=== PATIENT | female | born 1995 | race Caucasian/White ===

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

== ENCOUNTER 2017-02-15 08:28 | Outpatient (CLI) | payer MEDICAID ==
[2017-02-15 09:56] LABS: AMORPHOUS SEDIMENT,URINE TRACE /HPF; APPEARANCE,URINE TURBID; BILIRUBIN,URINE NEGATIVE (NEGATIVE); GLUCOSE, URINE NEGATIVE (NEGATIVE); KETONES,URINE NEGATIVE (NEGATIVE); LEUKOCYTE ESTERASE,URINE LARGE (NEGATIVE); NITRITE,URINE NEGATIVE (NEGATIVE); PROTEIN,URINE NEGATIVE (NEGATIVE); URINE SPECIFIC GRAVITY 1.017; UROBILINOGEN,URINE NEGATIVE mg/dL (<2.0)
[2017-02-15 10:22] LABS: URINE BARBITURATES SCREEN NEGATIVE; URINE METHADONE SCREEN NEGATIVE; URINE OPIATES LOW NEGATIVE; URINE PHENCYCLIDINE SCREEN NEGATIVE
== END 2017-02-15 10:07 | disposition home or self-care (01) ==
LOC: EDSTATUS 08:33 → LC 08:43
PROVIDERS: ATTEND Student in an Organized Health Care Education/Training Program
PROC: 4A1HXCZ Monitoring of Products of Conception, Cardiac Rate, External Approach (ICD-10-PCS; principal; 2017-02-15)
DX: O26.892 Other specified pregnancy related conditions, second trimester (principal); R10.2 Pelvic and perineal pain; Z3A.19 19 weeks gestation of pregnancy
CPT/HCPCS: 80307; 81001

== ENCOUNTER 2017-02-21 21:04 | Outpatient (CLI) | payer MEDICAID ==
[2017-02-21 21:47] LABS: APPEARANCE,URINE SLIGHTLY-CLOUDY; BILIRUBIN,URINE NEGATIVE (NEGATIVE); GLUCOSE, URINE NEGATIVE (NEGATIVE); KETONES,URINE 80 mg/dL (NEGATIVE); LEUKOCYTE ESTERASE,URINE MODERATE (NEGATIVE); NITRITE,URINE NEGATIVE (NEGATIVE); PROTEIN,URINE NEGATIVE (NEGATIVE); URINE SPECIFIC GRAVITY 1.028; UROBILINOGEN,URINE NEGATIVE mg/dL (<2.0)
[2017-02-21] MEDS ORDERED: RINGERS SOLUTION,LACTATED 1,000 ML IV PRN (21:49)
[2017-02-21 22:04] LABS: URINE BARBITURATES SCREEN NEGATIVE; URINE METHADONE SCREEN NEGATIVE; URINE OPIATES LOW NEGATIVE; URINE PHENCYCLIDINE SCREEN NEGATIVE
== END 2017-02-21 23:08 | disposition home or self-care (01) ==
LOC: LC 21:04
PROVIDERS: ATTEND Obstetrics & Gynecology
PROC: 4A1HXCZ Monitoring of Products of Conception, Cardiac Rate, External Approach (ICD-10-PCS; principal; 2017-02-21)
DX: O47.02 False labor before 37 completed weeks of gestation, second trimester (principal); Z3A.22 22 weeks gestation of pregnancy
CPT/HCPCS: 76815; 80307; 81001

== ENCOUNTER 2017-04-05 07:55 | Outpatient (CLI) | payer MEDICAID ==
[2017-04-05 08:27] LABS: APPEARANCE,URINE SLIGHTLY-CLOUDY; BILIRUBIN,URINE NEGATIVE (NEGATIVE); GLUCOSE, URINE NEGATIVE (NEGATIVE); KETONES,URINE NEGATIVE (NEGATIVE); LEUKOCYTE ESTERASE,URINE TRACE (NEGATIVE); NITRITE,URINE NEGATIVE (NEGATIVE); PROTEIN,URINE NEGATIVE (NEGATIVE); URINE SPECIFIC GRAVITY 1.024; UROBILINOGEN,URINE NEGATIVE mg/dL (<2.0)
[2017-04-05 08:44] LABS: URINE BARBITURATES SCREEN NEGATIVE; URINE METHADONE SCREEN NEGATIVE; URINE OPIATES LOW NEGATIVE; URINE PHENCYCLIDINE SCREEN NEGATIVE
--- NOTE | 2017-04-05 10:25 | RADIOLOGY REPORT (SQ) ---
EXAM DESCRIPTION: U/S OB LIMITED COMPLETED DATE/TIME: 04/05/2017 10:01 am REASON FOR STUDY: cervical length for vaginal bleeding COMPARISON: 02/21/2017. TECHNIQUE: Limited transvaginal grayscale ultrasound for evaluation of specific requested obstetrica l parameters. LIMITATIONS: None. FINDINGS: CERVICAL LENGTH: 3.7 cm. Closed. ROBBY: 21 cm. FHR: 139 beats per minute. PRESENTATION: Cephalic. OTHER: No other significant findings. IMPRESSION: LIMITED OBSTETRICAL ULTRASOUND WITH MEASURED PARAMETERS DELINEATED ABOVE. Trimester of : Second trimester - 13 weeks 1 day to 27 weeks 6 days. TECHNICAL DOCUMENTATION: JOB ID: [id number] [employer]- All Rights Reserved
[2017-04-05] MEDS ORDERED: FLUCONAZOLE 100 MG TABLET PO ONE (10:44)
[2017-04-05] MEDS ORDERED: FLUCONAZOLE 100 MG TABLET ONE (10:52)
[2017-04-05 11:33] LABS: CHLAM PCR NOT DETECTED (NOT DETECT)
== END 2017-04-05 11:43 | disposition home or self-care (01) ==
LOC: LC 07:55
PROVIDERS: ATTEND Specialist
PROC: 4A1HXCZ Monitoring of Products of Conception, Cardiac Rate, External Approach (ICD-10-PCS; principal; 2017-04-05)
DX: O99.282 Endocrine, nutritional and metabolic diseases complicating pregnancy, second trimester (principal); Z3A.27 27 weeks gestation of pregnancy
CPT/HCPCS: 59899; 87210; 81001; 80307; 87491; 87591; 76815; J3490

== ENCOUNTER 2017-07-04 09:44 | Inpatient (IN) | payer MEDICAID ==
[2017-07-04] MEDS ORDERED: RINGERS SOLUTION,LACTATED 300 ML IV ONE (09:46)
[2017-07-04] MEDS ORDERED: OXYTOCIN/NORMAL SALINE 20 UNIT/1,000 ML RTUINJ IV PRN (09:46)
[2017-07-04] MEDS ORDERED: RINGERS SOLUTION,LACTATED 1,000 ML IV PRN (09:46)
[2017-07-04 11:00] LABS: URINE BARBITURATES SCREEN NEGATIVE; URINE METHADONE SCREEN NEGATIVE; URINE OPIATES LOW NEGATIVE; URINE PHENCYCLIDINE SCREEN NEGATIVE
[2017-07-04 11:02] LABS: APPEARANCE,URINE SLIGHTLY-CLOUDY; BILIRUBIN,URINE NEGATIVE (NEGATIVE); GLUCOSE, URINE NEGATIVE (NEGATIVE); KETONES,URINE NEGATIVE (NEGATIVE); LEUKOCYTE ESTERASE,URINE NEGATIVE (NEGATIVE); NITRITE,URINE NEGATIVE (NEGATIVE); PROTEIN,URINE 100 mg/dL (NEGATIVE); URINE SPECIFIC GRAVITY 1.012; UROBILINOGEN,URINE NEGATIVE mg/dL (<2.0)
[2017-07-04 11:22] LABS: ABSOLUTE EOSINOPHILS # (AUTO) 0.2 10^3/uL (0.0-0.6); ABSOLUTE LYMPHOCYTES (AUTO) 2.9 10^3/uL (0.5-4.7); ABSOLUTE NEUT (AUTO) 11.4 10^3/uL (1.7-8.2); BASOPHILS % (AUTO) 0.3 % (0-2); EOSINOPHILS % (AUTO) 1.5 % (0-6); HEMATOCRIT 38.3 % (36.0-47.0); HEMOGLOBIN 13.4 g/dL (12.0-15.5); HGB HCT DIFFERENCE 1.9; LYMPHOCYTES % (AUTO) 18.6 % (13-45); MEAN CORPUSCULAR HEMOGLOBIN 31.1 pg (27.0-33.4); MEAN CORPUSCULAR HGB CONC 34.9 g/dL (32.0-36.0); MEAN CORPUSCULAR VOLUME 89 fl (80-97); MONOCYTES % (AUTO) 6.5 % (3-13); RED CELL DISTRIBUTION WIDTH 13.2 % (11.5-14.0); SEGMENTED NEUTROPHILS % (AUTO) 73.1 % (42-78); WHITE BLOOD COUNT 15.6 10^3/uL (4.0-10.5)
[2017-07-04] MEDS ORDERED: OXYTOCIN/NORMAL SALINE 20 UNIT/1,000 ML RTUINJ ONE ×2 (11:25→23:13)
--- NOTE | 2017-07-04 14:07 | L&D Progress Notes ---
PROGRESS NOTES Datetime Report Generated by CPN: 07/04/2017 14:07 PROGRESS NOTE Procedures: Sterile Vag Exam Plan: Continue Present Management; Induction Comment: complaining of pain with UC's. VE 3/90/vtx/-1, Cat 1 strip, requesting epidural, DrMarimar Arreaga aware of status, Start IV antibiotics, 18 hours post rom VAGINAL EXAM Dilatation: 3 Effacement: 80 Station: -1 MEMBRANES Membranes: Ruptured Amniotic Fluid Color: Clear SIGNATURE SIGNATURE: [id number] Assignment: Dinorah Arreaga MD Signature: with User ID: Ayanna : with User ID: [email or web address]
[2017-07-04] MEDS ORDERED: EPHEDRINE SULFATE INJ 50 MG/1 ML AMPULE ONE (14:10)
[2017-07-04] MEDS ORDERED: FENTANYL CITRATE INJ/PF 100 MCG/2 ML AMPUL ONE (14:10)
[2017-07-04] MEDS ORDERED: PHENYLEPHRINE HCL INJ/PF 10 MG/1 ML SDV ONE (14:11)
[2017-07-04] MEDS ORDERED: BUPIVACAINE HCL 0.25 % INJ/PF (2.5 MG/1 ML) 30 ML VIAL ONE (14:11)
[2017-07-04] MEDS ORDERED: FENTANYL/BUPIVACAINE/NS/PF 200 MCG/100 ML RTUINJ EPI ONE ×2 (14:11→21:49)
[2017-07-04] MEDS ORDERED: PENICILLIN G-K 5 MILLION UNIT VIAL ONE ×3 (14:23→22:21)
--- NOTE | 2017-07-04 15:17 | L&D Progress Notes ---
PROGRESS NOTES Datetime Report Generated by CPN: 07/04/2017 15:17 PROGRESS NOTE Comment: resting with epidural, Moderate variability, lates after epidural which has resolved, uc's q 2-3 min, will watch closely FETUS C SIGNATURE: [id number] Assignment: Dinorah Arreaga MD Signature: with User ID: [email or web address] : with User ID: [email or web address]
[2017-07-04] MEDS ORDERED: LIDOCAINE 1% INJ-PF (10 MG/ML) 30 ML SDV ONE (23:13)
[2017-07-04] MEDS ORDERED: MISOPROSTOL 0.2 MG TABLET ONE (23:13)
[2017-07-05] MEDS ORDERED: PENICILLIN G-K 5 MILLION UNIT VIAL ONE (02:53)
[2017-07-05] MEDS ORDERED: NA PHOS,M-B/NA PHOS,DI-BA (ADULT) 133 ML ENEMA PR PRN (04:28)
[2017-07-05] MEDS ORDERED: OXYTOCIN/NORMAL SALINE 20 UNIT/1,000 ML RTUINJ IV PRN (04:28)
[2017-07-05] MEDS ORDERED: DIBUCAINE 1% OINTMENT 28 GM TP PRN (04:28)
[2017-07-05] MEDS ORDERED: MEASLES,MUMPS&RUBELLA VACC/PF 0.5 ML VIAL SUBCUT PRN (04:28)
[2017-07-05] MEDS ORDERED: DIPH/PERTUSS(ACELL)/TETANUS VAC/PF 0.5 ML SYR (>=10YO) IM PRN (04:28)
[2017-07-05] MEDS ORDERED: PROMETHAZINE HCL 25 MG TABLET PO PRN (04:28)
[2017-07-05] MEDS ORDERED: PROMETHAZINE HCL 25 MG SUPP.RECT PR PRN (04:28)
[2017-07-05] MEDS ORDERED: PSEUDOEPHEDRINE HCL 30 MG TABLET PO PRN (04:28)
[2017-07-05] MEDS ORDERED: ACETAMINOPHEN 650 MG SUPP.RECT PR PRN (04:28)
[2017-07-05] MEDS ORDERED: ACETAMINOPHEN WITH CODEINE #3 TABLET PO PRN (04:28)
[2017-07-05] MEDS ORDERED: DIPHENHYDRAMINE HCL 25 MG CAPSULE PO PRN (04:28)
[2017-07-05] MEDS ORDERED: GLYCERIN/WITCH HAZEL LEAF 1 EACH MED..PAD TP PRN (04:28)
[2017-07-05] MEDS ORDERED: BENZOCAINE/MENTHOL AEROSOL SPRAY 56 ML TOP PRN (04:28)
[2017-07-05] MEDS ORDERED: PROMETHAZINE HCL INJ 25 MG/1 ML VIAL IV PRN (04:28)
[2017-07-05] MEDS ORDERED: MAGNESIUM HYDROXIDE SUSP 30 ML UDCUP PO PRN (04:28)
[2017-07-05] MEDS ORDERED: ZOLPIDEM TARTRATE 5 MG TABLET PO PRN (04:28)
[2017-07-05] MEDS: IBUPROFEN 800 MG TABLET PO SCH ×3 (05:13→21:05)
[2017-07-05] MEDS ORDERED: IBUPROFEN 800 MG TABLET ONE (05:16)
--- NOTE | 2017-07-05 06:14 | Delivery Summary ---
Del Sum A-C Datetime Report Generated by CPN: 07/05/2017 06:14 DELIVERY PERSONNEL DELIVERY PERSONNEL: [id number] Delivery Doctor:: Dinorah Arreaga MD Labor and Delivery Nurse:: Manisha Leroy RNmanager review Nurse:: Camelia Garcia RN Nursery Nurse:: Aleja Messer RN Nursery Nurse:: BRI Sunshine/TECTONOPHYSICIST: Merline Garsia, ST MATERNAL INFORMATION Delivery Anesthesia: Epidural Medications After Delivery: Pitocin Bolus-Please Comment; Pitocin Drip 20 Units/1000ml NSS Meds After Delivery Comment: Pitocin 20 units in 1 L NS, bolusing per order Estimated Blood Loss (ml): 250 Maternal Complications: Premature Rupture of Membranes Other Maternal Complications: Prolonged ROM Provider Comments: VMI delivered in Direct OA presentation with nuchal cord loose delivered through. Meconium noted at delivery. Shoulders and body delivered without difficulty. Cord doubly clamped and cut and to maternal abdomen for NRP. Placenta delivered intact spontaneously. FF at U. Good hemostasis post repair. Mother and baby stable upon provider leaving the room. LABOR SUMMARY EDC: 06/29/2017 00:00 No. Babies in Womb: 1 Attempted: No Labor Anesthesia: Epidural LABOR INFORMATION Reason for Induction: Premature Rupture of Membranes Onset of Labor: 07/04/2017 19:54 Complete Dilatation: 07/05/2017 02:52 Oxytocin: Induction Group B Beta Strep: Negative Antibiotics # of Doses: 4 Antibiotics Time of Last Dose: 0230 Name of Antibiotic Given: PCN Steroids Given: None Reason Steroids Not Administered: Not Applicable MEMBRANES Membranes Rupture Method: Spontaneous Rupture of Membranes: 07/03/2017 20:00 Length of Rupture (hr): 32.17 Amniotic Fluid Color: Clear Amniotic Fluid Amount: Moderate Amniotic Fluid Odor: Normal STAGES OF LABOR Stage 1 hr: 6 Stage 1 min: 58 Stage 2 hr: 1 Stage 2 min: 18 Stage 3 hr: 0 Stage 3 min: 4 Total Time in Labor hr: 8 Total Time in Labor min: 20 VAGINAL DELIVERY Episiotomy: None Laceration #1: Perineal Laceration Extension #1: First Degree Other Laceration: midline Laceration Repair: Yes Laceration Repair Note: 1st degree ML perineal laceration repaired in usual fashion with good hemostasis. Sponge Count Correct: Yes; Vaginal Sweep Performed Sharps Count Correct: Yes CSECTION DELIVERY Primary Indication: N/A Secondary Indication: N/A CSection Incidence: N/A Labor: N/A Elective: N/A CSection Incision: N/A BABY A INFORMATION Infant Delivery Date/Time: 07/05/2017 04:10 Method of Delivery: Vaginal Born in Route : No : N/A Forceps: N/A Vacuum Extraction: N/A Shoulder Dystocia : No PRESENTATION/POSITION BABY A Presentation: Cephalic Cephalic Presentation: Vertex Vertex Position: Right Occipital Anterior Breech Presentation: N/A PLACENTA INFORMATION BABY A Placenta Delivery Time : 07/05/2017 04:14 Placenta Method of Delivery: Spontaneous Placenta Status: Delivered SCORES BABY A Heart Rate 1 min: >100 bpm Resp Effort 1 min: Slow, Irregular Reflex Irritability 1 min: Cough or Sneeze or Pulls Away Muscle Tone 1 min: Active Motion Color 1 min: Blue/Pale Resuscitation Effort 1 min: Tactile Stimulation SCORE 1 MIN: 7 Heart Rate 5 min: >100 bpm Resp Effort 5 min: Good Cry Reflex Irritability 5 min: Cough or Sneeze or Pulls Away Muscle Tone 5 min: Active Motion Color 5 min: Body Kindred, Extremities Blue Resuscitation Effort 5 min: Tactile Stimulation SCORE 5 MIN: 9 INFANT INFORMATION BABY A Gestational Age at Delivery: 40.5 Gestational Status: Full Term- 39- 40.6 Weeks Outcome : Liveborn Condition : Stable Infant Sex: Male IDENTIFICATION BABY A Verification Date/Time: 07/05/2017 04:52 ID Band Number: [id number] Mother's Name Verified: Yes Infant RN Verifying : Manisha Leroy RN Additional Verifying Personnel: B Ring RN WEIGHT/LENGTH BABY A Infant Birthweight (gm): 3050 Weight (lb): 6 Weight (oz): 12 Length (in): 20.75 Length (cm): 52.71 CORD INFORMATION BABY A No. Cord Vessels: 3 Nuchal Cord : Around Neck x1, Loose Cord Blood Taken: Yes-For Eval (Mom's Blood Type - or O+) Infant Suction: Mouth; Nose ASSESSMENT BABY A Skin to Skin: Yes BABY B INFORMATION : N/A SIGNATURES Signature: with User ID: [email or web address]
--- NOTE | 2017-07-05 06:43 | Admission Physical ---
Datetime Report Generated by CPN: 07/05/2017 06:43 CURRENT ADMISSION Hx Assessment: The History has been Reviewed and is Current Chief Complaint: Other Chief Complaint Other: ROM Indication for Induction: Post Dates; PROM Indication for Induction: Postterm, Intrauterine ; No Active Labor; Ruptured Membranes Admit Plan: Admit to Unit; Initiate Labor Protocol; Initiate Labor Induction Protocol ALLERGIES Medication Allergies: No Medication Allergies: No Known Allergies (07/04/2017) Medication Allergies: No Known Allergies (11/19/2016) Latex: No Latex Allergies Food Allergies: none Environmental Allergies: none OBSTETRICAL HISTORY EDC: 06/29/2017 00:00 : 1 Para: 0 Term: 0 : 0 SAB: 0 IAB: 0 Ectopic: 0 Livin Cesareans: 0 VBACs: 0 Multiple Births: 0 Gestational Diabetes: No Rh Sensitization: No Incompetent Cervix: No TASNEEM: No Infertility: No ART Treatment: No Uterine Anomaly: No IUGR: No Hx Previous C/S: No Macrosomia: No Hx Loss/Stillborn: No PIH: No Hx : No Placenta Previa/Abruption: No Depression/PP Depression: No PTL/PROM: No Post Hemorrhage: No Current Procedures: Ultrasound; NST Obstetrical History Comments: G1 - current SEE RECORDS Alcohol: No Marijuana : No Cocaine: No Other Illicit Drugs: No Cigarettes: Former Smoker. [id number] MEDICAL HISTORY Diabetes: No Blood Transfusion: No Pulmonary Disease (Asthma, TB): No Breast Disease: No Hypertension: No Steeping Press Tender Surgery: No Heart Disease: No Hosp/Surgery: No Autoimmune Disorder: No Anesthetic Complications: No Kidney Disease: No Abnormal Pap Smear: No Neuro/Epilepsy: No Psychiatric Disorders: No Other Medical Diseases: No Hepatitis/Liver Disease: No Significant Family History: No Varicosities/Phlebitis: No Trauma/Violence : No Thyroid Dysfunction: No Medical History Comments: Ovarian Cyst R side ruptured on own INFECTIOUS HISTORY Gonorrhea: No Genital Herpes: No Chlamydia: No Tuberculosis: No Syphilis: No Hepatitis: No HIV/AIDS Exposure: No Rash or Viral Illness: No HPV: No PHYSICAL EXAM General: Normal HEENT: Normal Neurologic: Normal Thyroid: Normal Heart: Normal Lungs: Normal Breast: Deferred Back: Normal Abdomen: Normal Genitourinary Exam: Normal Extremities: Normal DTRs: Normal Pelvic Type: Adequate Physical Exam Comments: Boy, + Circ, breast, Neg GBS Vital Signs: Reviewed VAGINAL EXAM Dilatation: 3 Effacement: 80 Station: -1 MEMBRANES Membranes: Ruptured Amniotic Fluid Color: Clear FETUS A EGA: 40.5 Monitoring: External US FHR- Baseline: 135 Variability: Moderate 6-25bpm Accelerations: 15X15 Decelerations: None Admit Comment: Comfortable in bed, hsb at bedside, NKA, irreg uc's, ROM 2000 on 07-03 Cat 1 strip POC reviewed with patient and hsb, will start Pitocin, will start IV antibiotics if not delivered by 2 PM, = [address] Arreaga aware of admission and POC discussed PLANS FOR LABOR AND DELIVERY Labor and Delivery: None Pain Management: Epidural Feeding Preference: Breast Benefit of Breast Feed Discussed: Yes Circumcision: Yes INFORMED CONSENT Assignment: Dinorah Arreaga MD Signature: with User ID: [email or web address] : with User ID: [email or web address]
--- NOTE | 2017-07-05 07:35 | PDOC PROGRESS REPORT ---
Subjective-OB Subjective: Post Delivery Day: 22 year old. Denies any needs at this time Doing well, no c/o, hsb at BS, eating chips, hungry, mod lochia Physical Exam (OB) Vital Signs: Intake & Output 07/04/17 07/05/17 07/06/17 06:59 06:59 06:59 Weight 90.4 kg - Lochia Lochia Amount: Small 10-25 ml Lochia Color: Rubra/Red - Abdomen Description: Soft, Round Hernia Present: No Fundal Description: Firm, Midline Fundal Height: u/u - u/2 Objective-Diagnostic Laboratory: 07/04/17 11:04 07/04/17 07/04/17 07/04/17 10:00 11:04 11:04 WBC 15.6 H RBC 4.30 Hgb 13.4 Hct 38.3 MCV 89 MCH 31.1 MCHC 34.9 RDW 13.2 Plt Count 210 Seg Neutrophils % 73.1 Lymphocytes % 18.6 Monocytes % 6.5 Eosinophils % 1.5 Basophils % 0.3 Absolute Neutrophils 11.4 H Absolute Lymphocytes 2.9 Absolute Monocytes 1.0 Absolute Eosinophils 0.2 Absolute Basophils 0.0 Urine Color YELLOW Urine Appearance SLIGHTLY-CLOUDY Urine pH 7.0 Ur Specific [place] 1.012 Urine Protein 100 H Urine Glucose (UA) NEGATIVE Urine Ketones NEGATIVE Urine Blood SMALL H Urine Nitrite NEGATIVE Ur Leukocyte Esterase NEGATIVE Blood Type O POSITIVE Antibody Screen NEGATIVE Assessment and Plan(PN) - Assessment and Plan (1) Normal vaginal delivery Is this a current diagnosis for this admission?: Yes - Time Spent with Patient Time with patient: Less than 15 minutes Medications reviewed and adjusted accordingly: Yes - Disposition Anticipated Discharge: Home Within: within 24 hours, within 48 hours
[2017-07-05] MEDS: PRENATAL VITAMIN W-O CA NO5/FE FUMARATE/FA CAPSULE PO SCH (09:11)
[2017-07-05] MEDS: FAMOTIDINE 20 MG TABLET PO SCH ×2 (09:11→21:05)
[2017-07-05] MEDS: FERROUS SULFATE 325 MG TABLET PO SCH ×2 (09:12→17:09)
[2017-07-05] MEDS: SENNOSIDES/DOCUSATE 8.6-50 MG 1 EACH TABLET PO SCH (09:12)
[2017-07-05] MEDS: DOCUSATE SODIUM 100 MG CAPSULE PO SCH ×2 (09:12→17:09)
[2017-07-06] MEDS: ACETAMINOPHEN WITH CODEINE #3 TABLET PO PRN (01:13)
[2017-07-06] MEDS: IBUPROFEN 800 MG TABLET PO SCH ×3 (05:10→21:50)
[2017-07-06 07:59] LABS: HEMATOCRIT 34.7 % (36.0-47.0); HGB HCT DIFFERENCE 1.3; MEAN CORPUSCULAR HEMOGLOBIN 31.4 pg (27.0-33.4); MEAN CORPUSCULAR HGB CONC 34.5 g/dL (32.0-36.0); MEAN CORPUSCULAR VOLUME 91 fl (80-97); RED BLOOD COUNT 3.81 10^6/uL (3.72-5.28); RED CELL DISTRIBUTION WIDTH 13.4 % (11.5-14.0); WHITE BLOOD COUNT 13.4 10^3/uL (4.0-10.5)
[2017-07-06] MEDS: FERROUS SULFATE 325 MG TABLET PO SCH ×2 (09:11→17:03)
[2017-07-06] MEDS: DOCUSATE SODIUM 100 MG CAPSULE PO SCH ×2 (09:11→17:03)
[2017-07-06] MEDS: PRENATAL VITAMIN W-O CA NO5/FE FUMARATE/FA CAPSULE PO SCH (09:11)
[2017-07-06] MEDS: FAMOTIDINE 20 MG TABLET PO SCH ×2 (09:11→21:50)
[2017-07-06] MEDS: SENNOSIDES/DOCUSATE 8.6-50 MG 1 EACH TABLET PO SCH (09:11)
--- NOTE | 2017-07-06 11:38 | PDOC PROGRESS REPORT ---
Subjective-OB Subjective: Post Delivery Day: 22 year old. Denies any needs at this time Doing well, no c/o, , voiding, ambulating Physical Exam (OB) Vital Signs: Temp Pulse Resp BP Pulse Ox 97.7 F 84 16 116/74 98 07/06/17 07:37 07/06/17 07:37 07/06/17 07:37 07/06/17 07:37 07/06/17 07:37 Intake & Output 07/05/17 07/06/17 07/07/17 06:59 06:59 06:59 Intake Total 250 Output Total 2 Balance 248 Weight 90.4 kg - Lochia Lochia Amount: Scant < 10 ml Lochia Color: Rubra/Red - Abdomen Description: Tender, Soft, Round Hernia Present: No Fundal Description: Firm, Midline Fundal Height: u/u - u/2 Objective-Diagnostic Laboratory: 07/06/17 07:24 07/06/17 07:24 WBC 13.4 H RBC 3.81 Hgb 12.0 Hct 34.7 L MCV 91 MCH 31.4 MCHC 34.5 RDW 13.4 Plt Count 200 Assessment and Plan(PN) - Assessment and Plan (1) Normal vaginal delivery Is this a current diagnosis for this admission?: Yes - Time Spent with Patient Time with patient: Less than 15 minutes Medications reviewed and adjusted accordingly: Yes - Disposition Anticipated Discharge: Home Within: within 24 hours
[2017-07-06 22:14] VITALS: BP 120/74
[2017-07-07] MEDS: ACETAMINOPHEN WITH CODEINE #3 TABLET PO PRN (01:41)
[2017-07-07] MEDS: IBUPROFEN 800 MG TABLET PO SCH (05:03)
[2017-07-07] MEDS: SENNOSIDES/DOCUSATE 8.6-50 MG 1 EACH TABLET PO SCH (10:44)
[2017-07-07] MEDS: PRENATAL VITAMIN W-O CA NO5/FE FUMARATE/FA CAPSULE PO SCH (10:44)
[2017-07-07] MEDS: FAMOTIDINE 20 MG TABLET PO SCH (10:44)
[2017-07-07] MEDS: DOCUSATE SODIUM 100 MG CAPSULE PO SCH (10:44)
[2017-07-07] MEDS: FERROUS SULFATE 325 MG TABLET PO SCH (10:44)
--- NOTE | 2017-07-07 12:02 | PDOC DISCHARGE SUMMARY ---
Final Diagnosis Discharge Date: 07/07/17 - Final Diagnosis (1) Normal vaginal delivery Is this a current diagnosis for this admission?: Yes Discharge Data - Discharge Medication Home Medications: Multivitamins W-Iron [Flintstones Chewable Multivit W/Fe Tab] 1 tab.chew PO DAILY 02/15/17 Doxylamine Succinate/Vit B6 [Diclegis Dr 10-10 mg Tablet] 1 each PO TID Acetaminophen [Tylenol 325 mg Tablet] 325 mg DAILY 07/04/17 Ibuprofen [Motrin 800 mg Tablet] 800 mg PO Q8HP PRN #30 tablet 07/07/17 Reason(s) for Admission: PROM Procedures: NST, Ultrasound Intrapartum Procedure(s): Spontaneous Vaginal Delivery Complication(s): Laceration-Perineal Laceration-Degree: 2nd - Diagnosis Test Laboratory: Temp Pulse Resp BP Pulse Ox 98.4 F 86 20 120/74 98 07/06/17 20:28 07/06/17 20:28 07/06/17 20:28 07/06/17 20:28 07/06/17 20:28 07/04/17 07/04/17 07/06/17 10:00 11:04 07:24 RBC 4.30 3.81 Hgb 13.4 12.0 Hct 38.3 34.7 L Urine Opiates Screen NEGATIVE - Discharge information/Instructions Discharge Activity: Activity As Tolerated, Balance Activity w/Rest, No Lifting Over 10 Pounds, No Lifting/Push/Pulling, Pelvic Rest, Slowly Increase Activity, No tub bath Discharge Diet: As Tolerated, Regular Disposition: HOME, SELF-CARE Follow up with: [facility] in: 4, Weeks
== END 2017-07-07 14:15 | disposition home or self-care (01) | DRG 775 ==
LOC: LR 09:44 → 2S 07-05 06:41
PROVIDERS: ADMIT Student in an Organized Health Care Education/Training Program; ATTEND Student in an Organized Health Care Education/Training Program
PROC: 10E0XZZ Delivery of Products of Conception, External Approach (ICD-10-PCS; principal; 2017-07-05)
PROC: 0HQ9XZZ Repair Perineum Skin, External Approach (ICD-10-PCS; 2017-07-05)
PROC: 3E0234Z Introduction of Serum, Toxoid and Vaccine into Muscle, Percutaneous Approach (ICD-10-PCS; 2017-07-07)
DX: O42.02 Full-term premature rupture of membranes, onset of labor within 24 hours of rupture (principal); O48.0 Post-term pregnancy; O70.0 First degree perineal laceration during delivery; O77.0 Labor and delivery complicated by meconium in amniotic fluid; Z3A.40 40 weeks gestation of pregnancy; Z37.0 Single live birth; Z23 Encounter for immunization
CPT/HCPCS: 36415; 80307; 81005; 85025; 85027; 86592; 86850; 86900; 86901; 88307; 90707; 94760; J2370; J2540; J2590; J3010; J3490

== ENCOUNTER 2019-05-16 12:23 | Emergency (ER) | payer OTHER, MEDICAID ==
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
[2019-05-16 14:47] VITALS: BP 127/76
== END 2019-05-16 14:46 | disposition home or self-care (01) ==
LOC: ER 12:23
DX: S40.012A Contusion of left shoulder, initial encounter (principal); M25.512 Pain in left shoulder; R51 Headache; V43.52XA Car driver injured in collision with other type car in traffic accident, initial encounter; Y93.89 Activity, other specified; F17.210 Nicotine dependence, cigarettes, uncomplicated
CPT/HCPCS: 72125; 99284